=== PATIENT | female | born 1945 ===

== ENCOUNTER 2017-11-18 06:50 | Day surgery (SDC) | payer OTHER | END 2017-11-18 11:30 | disposition home or self-care (01) | LOC: CIR.AMB 06:50 → AMB-ENDOS 06:50 → CIR.AMB 11:30 | DX: D12.2 Benign neoplasm of ascending colon (principal); K57.32 Diverticulitis of large intestine without perforation or abscess without bleeding; K64.8 Other hemorrhoids ==